=== PATIENT | female | born 1990 | race Two or more races ===

== ENCOUNTER 2017-01-20 12:04 | Emergency (ER) | payer OTHER ==
[~2017-01-20] VITALS: Ht 152.4 cm; Wt 65.8 kg
[2017-01-20 12:04] VITALS: BP 149/90
[2017-01-20] MEDS ORDERED: METHOTREXATE2.5 MG PO (12:34)
[2017-01-20] MEDS ORDERED: TYLENOL EXTRA500 MG ORAL (13:56)
[2017-01-20 14:07] VITALS: BP 149/90
--- NOTE | 2017-01-20 14:44 | Diagnostic Imaging Report ---
Indications: Fall, left wrist pain Technique: 3 views left wrist. Findings: Comparison: None No fracture, dislocation, joint space widening , surrounding soft tissue swelling/foreign body/gas, or other acute changes are identified. IMPRESSION: No evidence of acute injury to the left wrist.
--- NOTE | 2017-01-20 14:45 | Diagnostic Imaging Report ---
Indications: Fall, left shoulder pain Technique: 3 views left shoulder. Findings: Comparison: None No fracture, dislocation, joint space widening , surrounding soft tissue swelling/foreign body/gas, or other acute changes are identified. IMPRESSION: No evidence of acute injury to the left shoulder.
--- NOTE | 2017-01-20 14:46 | Diagnostic Imaging Report ---
Indications: Fall, back pain. Technique: 3 views of the thoracic spine Findings: Comparison: None Vertebral alignment is intact. No fracture, lytic destruction, paraspinous soft tissue swelling, or other acute changes are demonstrated. Small osteophytes are present at the anterior margins of several disc spaces, without significant narrowing. No additional degenerative changes, deformity, or other chronic changes are demonstrated. IMPRESSION: No evidence of acute injury to the thoracic spine Mild degenerative disc disease.
--- NOTE | 2017-01-22 07:19 | Emergency Room Report ---
History of Present Illness General Chief Complaint: Upper Extremity Injury Source: Patient Present Illness HPI 26-year-old female presents ED complaining of left arm and back pain status post fall. Patient states she had a mechanical trip and fall at work today and fell down the stairs. Denies hitting her head or LOC. Patient states pain was minimal but work requested patient come to ER for evaluation. Patient notes pain in her left shoulder and left wrist and upper back. Pain is a 1/10, dull, nonradiating. No other aggravating relieving factors. Denies any other associated symptoms Allergies: Coded Allergies: No Known Allergies (Unverified , 01/20/17) Patient History Past Medical History: none Past Surgical History: none Pertinent Family History: none Social History: Denies: smoking, alcohol use, drug use Last Menstrual Period: 01/04/17 Now: No Immunizations: UTD Reviewed Nursing Documentation: PMH: Agreed, PSxH: Agreed Review of Systems All Other Systems: negative except mentioned in HPI Physical Exam Vital Signs Date Time Temp Pulse Resp B/P (MAP) Pulse Ox O2 Delivery O2 Flow Rate FiO2 01/20/17 12:01 97.9 67 16 149/90 100 Room Air Sp02 EP Interpretation: reviewed, normal General Appearance: no apparent distress, alert, GCS 15, non-toxic Head: normocephalic, atraumatic Eyes: bilateral eye normal inspection, bilateral eye PERRL ENT: hearing grossly normal, normal pharynx, no angioedema, normal voice Neck: full range of motion, no bony tend, supple/symm/no masses Respiratory: chest non-tender, lungs clear, normal breath sounds, speaking full sentences Cardiovascular #1: regular rate, rhythm, no edema Cardiovascular #2: 2+ carotid (R), 2+ carotid (L), 2+ radial (R), 2+ radial (L) , 2+ dorsalis pedis (R), 2+ dorsalis pedis (L) Gastrointestinal: normal bowel sounds, non tender, soft, non-distended, no guarding, no rebound Rectal: deferred Genitourinary: normal inspection, no CVA tenderness, vertebral tenderness - Tspine Musculoskeletal: back normal, gait/station normal, normal range of motion, tender - L shoulder, L wrist Neurologic: alert, oriented x3, responsive, motor strength/tone normal, sensory intact, speech normal Psychiatric: judgement/insight normal, memory normal, mood/affect normal, no suicidal/homicidal ideation Reflexes: 3+ bicep (R), 3+ bicep (L), 3+ tricep (R), 3+ tricep (L), 3+ knee (R) , 3+ knee (L) Skin: normal color, no rash, warm/dry, well hydrated Lymphatic: no adenopathy Medical Decision Making Diagnostic Impression: Primary Impression: Fall down stairs Qualified Codes: W10.8XXA - Fall (on) (from) other stairs and steps, initial encounter Additional Impression: Arm contusion Qualified Codes: S40.022A - Contusion of left upper arm, initial encounter ER Course Hospital Course 26-year-old F presents to ED complaining of L arm and back pain s/p trip and fall Differential diagnoses include: Fracture, dislocation, sprain, contusion Clinical course Patient placed on stretcher. After initial history and physical, I ordered pain medications and Xrays of L shoulder, L wrist and Tspine Xrays prelim read shows no acute fracture/dislocation. on reassessment pain is improved Diagnosis -fall down stairs, arm contusion Stable and discharged to home with prescription for Tylenol. apply ice, keep elevated. weight bear as tolerated. Followup with PMD. Return to ED if symptoms recur or worsen Other X-Ray Diagnostic Results Other X-Ray Diagnostic Results #1: X-Ray ordered: L shoulder # of Views/Limited Vs Complete: 3 View Indication: Pain EP Interpretation: Yes Interpretation: no dislocation, no soft tissue swelling, no fractures Impression: No acute disease Interpreting ER Provider: Electronically signed by Travis Cardozo MD Other X-Ray Diagnostic Results #2: X-Ray ordered: L wrist # of Views/Limited Vs Complete: 3 View Indication: Pain EP Interpretation: Yes Interpretation: no dislocation, no soft tissue swelling, no fractures Impression: No acute disease Interpreting ER Provider: Electronically signed by Travis Cardozo MD Other X-Ray Diagnostic Results #3: X-Ray ordered: T-spine # of Views/Limited Vs Complete: 3 View Indication: Pain EP Interpretation: Yes Interpretation: no dislocation, no soft tissue swelling, no fractures Impression: No acute disease Interpreting ER Provider: Electronically signed by Travis Cardozo MD Last Vital Signs Date Time Temp Pulse Resp B/P (MAP) Pulse Ox O2 Delivery O2 Flow Rate FiO2 01/20/17 14:07 97.9 16 149/90 100 Room Air 01/20/17 12:04 71 Status: improved Disposition: HOME, SELF-CARE Condition: Stable Scripts Acetaminophen* (TYLENOL EXTRA STRENGTH*) 500 Mg Tablet 500 MG ORAL Q8H Y for Prn Headache/Temp > 101, #30 TAB 0 Refills Prov: TRAVIS CARDOZO M.D. 01/20/17 Departure Forms: Return to Work Return to Work Date: Jan 22, 2017 Work Restrictions: Desk Work Only Patient Instructions: Contusion, [id number] TRAVIS CARDOZO M.D. Jan 22, 2017 07:18
== END 2017-01-20 14:07 | disposition home or self-care (01) ==
LOC: EDBD 12:04 → EMR 12:30
DX: M79.602 Pain in left arm (principal); M54.9 Dorsalgia, unspecified; S40.022A Contusion of left upper arm, initial encounter; W10.9XXA Fall (on) (from) unspecified stairs and steps, initial encounter; Y93.9 Activity, unspecified; Y99.9 Unspecified external cause status; M25.532 Pain in left wrist
CPT/HCPCS: 72070; 99284

== ENCOUNTER 2017-04-04 11:34 | Emergency (ER) | payer OTHER ==
[~2017-04-04] VITALS: Ht 152.4 cm; Wt 54.4 kg
[~2017-04-04 11:34] MED LIST: METHOTREXATE2.5 MG PO; TYLENOL EXTRA500 MG ORAL
[2017-04-04] MEDS ORDERED: Norco 5mg/325mg tab ORAL ONE (12:15)
--- NOTE | 2017-04-04 13:43 | Emergency Room Report ---
History of Present Illness General Chief Complaint: Lower Extremity Injury Present Illness HPI 26 YO Femalepresents to the ED c/o 03/09 in severity left ankle/foot pain with swelling s/p fall from skate board this am. denies hitting her head, LOC, bleeding/open wounds. "numbing cream" was applied by neighbor CREMATORY ATTENDANT. pain exacerbated with weight bearing. Denies numbness tingling or loss of sensation or gross motor movements of the extremities, incontinence of bowel or bladder. Denies CP, Palpitations, LOC, AMS, dizziness, Changes in Vision, Sensation, paresthesias, or a sudden severe headache. Allergies: Coded Allergies: No Known Allergies (Unverified , 01/20/17) Patient History Past Medical History: see triage record Past Surgical History: none Pertinent Family History: none Now: No Reviewed Nursing Documentation: PMH: Agreed, PSxH: Agreed Review of Systems All Other Systems: negative except mentioned in HPI Physical Exam Vital Signs Date Time Temp Pulse Resp B/P (MAP) Pulse Ox O2 Delivery O2 Flow Rate FiO2 04/04/17 11:40 98.1 81 20 134/81 100 Room Air Sp02 EP Interpretation: reviewed, normal General Appearance: no apparent distress, alert, GCS 15, non-toxic Head: normocephalic, atraumatic Eyes: bilateral eye normal inspection, bilateral eye PERRL ENT: hearing grossly normal, normal voice Neck: full range of motion Respiratory: lungs clear, normal breath sounds, speaking full sentences Cardiovascular #1: regular rate, rhythm, normal capillary refill Cardiovascular #2: 2+ dorsalis pedis (R) Rectal: deferred Musculoskeletal: back normal, normal range of motion, swelling - Lateral Left ankle, other - no instability/laxity of the ankle ( left) , Pt. is NVI, tender - lateral left ankle Neurologic: alert, oriented x3, responsive, motor strength/tone normal, sensory intact, speech normal Skin: normal color, no rash, warm/dry, well hydrated Medical Decision Making PA Attestation Dr. Dennis is my supervising Physician whom patient management has been discussed with. Diagnostic Impression: Primary Impression: Ankle fracture, left Qualified Codes: S82.892A - Other fracture of left lower leg, initial encounter for closed fracture ER Course Pt. presents to the ED c/o 03/09 in severity left ankle/foot pain with swelling s/p fall from skate board this am. denies hitting her head, LOC, bleeding/open wounds. "numbing cream" was applied by neighbor CREMATORY ATTENDANT. Ddx considered but are not limited to Fracture, dislocation, contusion, Sprain/ Strain/Spasm just to name a few. Vital signs: are WNL, pt. is afebrile H&PE are most consistent with musculoskeletal injury will perform imaging to r/ o fractures/dislocations. ORDERS: - X-ray Left Foot and Left Ankle--POSITIVE FOR FX. ED INTERVENTIONS: - [place] PO - Short leg posterior with stirrup Splint applied to the left ankle by cardiovascular surgical tech. Pt. remains neurovascularly intact. -Patient is provided with crutches and instructed on their use DISCHARGE: At this time pt. is stable for d/c to home. Will provide printed patient care instructions, and any necessary prescriptions. Care plan and follow up instructions have been discussed with the patient prior to discharge. Other X-Ray Diagnostic Results Other X-Ray Diagnostic Results : X-Ray ordered: Left Foot/ Ankle # of Views/Limited Vs Complete: 4 View Indication: Pain PA Xray: Interpretation reviewed, by supervising MD, and agrees with findings. Interpretation: no dislocation, other - Non-displaced distal Fibular fx with soft tissue swelling. Impression: Other - ABNORMAL : POSITIVE FOR FX. Electronically Signed by: Starr Fitch PA-C Last Vital Signs Date Time Temp Pulse Resp B/P (MAP) Pulse Ox O2 Delivery O2 Flow Rate FiO2 04/04/17 11:40 98.1 81 20 134/81 100 Room Air Disposition: HOME, SELF-CARE Condition: Stable Scripts Acetaminophen* (TYLENOL EXTRA STRENGTH*) 500 Mg Tablet 500 MG ORAL Q6H Y for Mild Pain/Temp > 100.5, #30 TAB 0 Refills Prov: Starr Fitch 04/04/17 Hydrocodone Bit/Acetaminophen 5-325* (NORCO 5-325*) 1 Each Tablet 1 TAB ORAL Q6H, #10 TAB 0 Refills Prov: Starr [email or web address] 04/04/17 Referrals: NON PHYSICIAN (PCP) Patient Instructions: Ankle Fracture Additional Instructions: Take medications as directed. Follow up with a Primary Care Provider in 3-5 days, even if your symptoms have resolved. --Please review list of primary care clinics, if you do not already have a primary care provider Return sooner to ED if new symptoms occur, or current symptoms become worse. Do not drink alcohol, drive, or operate heavy machinery while taking [place] as this may cause drowsiness. - Please note that this Emergency Department Report was dictated using [employer] land technology software, occasionally this can lead to erroneous entry secondary to interpretation by the dictation equipment. Starr Fitch Apr 04, 2017 13:43
--- NOTE | 2017-04-04 13:43 | Emergency Room Report ---
History of Present Illness General Chief Complaint: Lower Extremity Injury Present Illness HPI 26 YO Femalepresents to the ED c/o 03/09 in severity left ankle/foot pain with swelling s/p fall from skate board this am. denies hitting her head, LOC, bleeding/open wounds. "numbing cream" was applied by neighbor DOCUMENTATION ENGINEER. pain exacerbated with weight bearing. Denies numbness tingling or loss of sensation or gross motor movements of the extremities, incontinence of bowel or bladder. Denies CP, Palpitations, LOC, AMS, dizziness, Changes in Vision, Sensation, paresthesias, or a sudden severe headache. Allergies: Coded Allergies: No Known Allergies (Unverified , 01/20/17) Patient History Past Medical History: see triage record Past Surgical History: none Pertinent Family History: none Now: No Reviewed Nursing Documentation: PMH: Agreed, PSxH: Agreed Review of Systems All Other Systems: negative except mentioned in HPI Physical Exam Vital Signs Date Time Temp Pulse Resp B/P (MAP) Pulse Ox O2 Delivery O2 Flow Rate FiO2 04/04/17 11:40 98.1 81 20 134/81 100 Room Air Sp02 EP Interpretation: reviewed, normal General Appearance: no apparent distress, alert, GCS 15, non-toxic Head: normocephalic, atraumatic Eyes: bilateral eye normal inspection, bilateral eye PERRL ENT: hearing grossly normal, normal voice Neck: full range of motion Respiratory: lungs clear, normal breath sounds, speaking full sentences Cardiovascular #1: regular rate, rhythm, normal capillary refill Cardiovascular #2: 2+ dorsalis pedis (R) Rectal: deferred Musculoskeletal: back normal, normal range of motion, swelling - Lateral Left ankle, other - no instability/laxity of the ankle ( left) , Pt. is NVI, tender - lateral left ankle Neurologic: alert, oriented x3, responsive, motor strength/tone normal, sensory intact, speech normal Skin: normal color, no rash, warm/dry, well hydrated Medical Decision Making PA Attestation Dr. Dennis is my supervising Physician whom patient management has been discussed with. Diagnostic Impression: Primary Impression: Ankle fracture, left Qualified Codes: S82.892A - Other fracture of left lower leg, initial encounter for closed fracture ER Course Pt. presents to the ED c/o 03/09 in severity left ankle/foot pain with swelling s/p fall from skate board this am. denies hitting her head, LOC, bleeding/open wounds. "numbing cream" was applied by neighbor DOCUMENTATION ENGINEER. Ddx considered but are not limited to Fracture, dislocation, contusion, Sprain/ Strain/Spasm just to name a few. Vital signs: are WNL, pt. is afebrile H&PE are most consistent with musculoskeletal injury will perform imaging to r/ o fractures/dislocations. ORDERS: - X-ray Left Foot and Left Ankle--POSITIVE FOR FX. ED INTERVENTIONS: - [place] PO - Short leg posterior with stirrup Splint applied to the left ankle by soil technician. Pt. remains neurovascularly intact. -Patient is provided with crutches and instructed on their use DISCHARGE: At this time pt. is stable for d/c to home. Will provide printed patient care instructions, and any necessary prescriptions. Care plan and follow up instructions have been discussed with the patient prior to discharge. Other X-Ray Diagnostic Results Other X-Ray Diagnostic Results : X-Ray ordered: Left Foot/ Ankle # of Views/Limited Vs Complete: 4 View Indication: Pain PA Xray: Interpretation reviewed, by supervising MD, and agrees with findings. Interpretation: no dislocation, other - Non-displaced distal Fibular fx with soft tissue swelling. Impression: Other - ABNORMAL : POSITIVE FOR FX. Electronically Signed by: Starr Fitch PA-C Last Vital Signs Date Time Temp Pulse Resp B/P (MAP) Pulse Ox O2 Delivery O2 Flow Rate FiO2 04/04/17 11:40 98.1 81 20 134/81 100 Room Air Disposition: HOME, SELF-CARE Condition: Stable Scripts Acetaminophen* (TYLENOL EXTRA STRENGTH*) 500 Mg Tablet 500 MG ORAL Q6H Y for Mild Pain/Temp > 100.5, #30 TAB 0 Refills Prov: Starr Fitch 04/04/17 Hydrocodone Bit/Acetaminophen 5-325* (NORCO 5-325*) 1 Each Tablet 1 TAB ORAL Q6H, #10 TAB 0 Refills Prov: Starr [email or web address] 04/04/17 Referrals: NON PHYSICIAN (PCP) Patient Instructions: Ankle Fracture Additional Instructions: Take medications as directed. Follow up with a Primary Care Provider in 3-5 days, even if your symptoms have resolved. --Please review list of primary care clinics, if you do not already have a primary care provider Return sooner to ED if new symptoms occur, or current symptoms become worse. Do not drink alcohol, drive, or operate heavy machinery while taking [place] as this may cause drowsiness. - Please note that this Emergency Department Report was dictated using [employer] large technology software, occasionally this can lead to erroneous entry secondary to interpretation by the dictation equipment. Starr Fitch Apr 04, 2017 13:43
--- NOTE | 2017-04-04 13:43 | Emergency Room Report ---
History of Present Illness General Chief Complaint: Lower Extremity Injury Present Illness HPI 26 YO Femalepresents to the ED c/o 03/09 in severity left ankle/foot pain with swelling s/p fall from skate board this am. denies hitting her head, LOC, bleeding/open wounds. "numbing cream" was applied by neighbor XEROX MACHINE OPERATOR. pain exacerbated with weight bearing. Denies numbness tingling or loss of sensation or gross motor movements of the extremities, incontinence of bowel or bladder. Denies CP, Palpitations, LOC, AMS, dizziness, Changes in Vision, Sensation, paresthesias, or a sudden severe headache. Allergies: Coded Allergies: No Known Allergies (Unverified , 01/20/17) Patient History Past Medical History: see triage record Past Surgical History: none Pertinent Family History: none Now: No Reviewed Nursing Documentation: PMH: Agreed, PSxH: Agreed Review of Systems All Other Systems: negative except mentioned in HPI Physical Exam Vital Signs Date Time Temp Pulse Resp B/P (MAP) Pulse Ox O2 Delivery O2 Flow Rate FiO2 04/04/17 11:40 98.1 81 20 134/81 100 Room Air Sp02 EP Interpretation: reviewed, normal General Appearance: no apparent distress, alert, GCS 15, non-toxic Head: normocephalic, atraumatic Eyes: bilateral eye normal inspection, bilateral eye PERRL ENT: hearing grossly normal, normal voice Neck: full range of motion Respiratory: lungs clear, normal breath sounds, speaking full sentences Cardiovascular #1: regular rate, rhythm, normal capillary refill Cardiovascular #2: 2+ dorsalis pedis (R) Rectal: deferred Musculoskeletal: back normal, normal range of motion, swelling - Lateral Left ankle, other - no instability/laxity of the ankle ( left) , Pt. is NVI, tender - lateral left ankle Neurologic: alert, oriented x3, responsive, motor strength/tone normal, sensory intact, speech normal Skin: normal color, no rash, warm/dry, well hydrated Medical Decision Making PA Attestation Dr. Dennis is my supervising Physician whom patient management has been discussed with. Diagnostic Impression: Primary Impression: Ankle fracture, left Qualified Codes: S82.892A - Other fracture of left lower leg, initial encounter for closed fracture ER Course Pt. presents to the ED c/o 03/09 in severity left ankle/foot pain with swelling s/p fall from skate board this am. denies hitting her head, LOC, bleeding/open wounds. "numbing cream" was applied by neighbor XEROX MACHINE OPERATOR. Ddx considered but are not limited to Fracture, dislocation, contusion, Sprain/ Strain/Spasm just to name a few. Vital signs: are WNL, pt. is afebrile H&PE are most consistent with musculoskeletal injury will perform imaging to r/ o fractures/dislocations. ORDERS: - X-ray Left Foot and Left Ankle--POSITIVE FOR FX. ED INTERVENTIONS: - [place] PO - Short leg posterior with stirrup Splint applied to the left ankle by medical radiation tech. Pt. remains neurovascularly intact. -Patient is provided with crutches and instructed on their use DISCHARGE: At this time pt. is stable for d/c to home. Will provide printed patient care instructions, and any necessary prescriptions. Care plan and follow up instructions have been discussed with the patient prior to discharge. Other X-Ray Diagnostic Results Other X-Ray Diagnostic Results : X-Ray ordered: Left Foot/ Ankle # of Views/Limited Vs Complete: 4 View Indication: Pain PA Xray: Interpretation reviewed, by supervising MD, and agrees with findings. Interpretation: no dislocation, other - Non-displaced distal Fibular fx with soft tissue swelling. Impression: Other - ABNORMAL : POSITIVE FOR FX. Electronically Signed by: Starr Fitch PA-C Last Vital Signs Date Time Temp Pulse Resp B/P (MAP) Pulse Ox O2 Delivery O2 Flow Rate FiO2 04/04/17 11:40 98.1 81 20 134/81 100 Room Air Disposition: HOME, SELF-CARE Condition: Stable Scripts Acetaminophen* (TYLENOL EXTRA STRENGTH*) 500 Mg Tablet 500 MG ORAL Q6H Y for Mild Pain/Temp > 100.5, #30 TAB 0 Refills Prov: Starr Fitch 04/04/17 Hydrocodone Bit/Acetaminophen 5-325* (NORCO 5-325*) 1 Each Tablet 1 TAB ORAL Q6H, #10 TAB 0 Refills Prov: Starr [email or web address] 04/04/17 Referrals: NON PHYSICIAN (PCP) Patient Instructions: Ankle Fracture Additional Instructions: Take medications as directed. Follow up with a Primary Care Provider in 3-5 days, even if your symptoms have resolved. --Please review list of primary care clinics, if you do not already have a primary care provider Return sooner to ED if new symptoms occur, or current symptoms become worse. Do not drink alcohol, drive, or operate heavy machinery while taking [place] as this may cause drowsiness. - Please note that this Emergency Department Report was dictated using [employer] technician technology software, occasionally this can lead to erroneous entry secondary to interpretation by the dictation equipment. Starr Fitch Apr 04, 2017 13:43
[2017-04-04] MEDS ORDERED: TYLENOL EXTRA500 MG ORAL (14:11)
[2017-04-04] MEDS ORDERED: NORCO 5-325 TA1 EACH ORAL (14:11)
[2017-04-04 14:33] VITALS: BP 128/82
--- NOTE | 2017-04-05 14:54 | Diagnostic Imaging Report ---
Indication: Pain Comparison: None Findings: 3 views of the left foot were obtained. No acute fractures, malalignment, erosions or periostitis are identified. Soft tissues are unremarkable. Impression: No acute findings
--- NOTE | 2017-04-05 14:55 | Diagnostic Imaging Report ---
Indication: left ankle pain Comparison: None Findings: 3 views of the left ankle obtained. Acute nondisplaced fracture of the lateral malleolus demonstrated. Ankle alignment is normal. Lateral soft tissue swelling is present. Impression: Acute lateral malleolus fracture
== END 2017-04-04 14:35 | disposition home or self-care (01) ==
LOC: EMR 12:30
DX: S82.65XA Nondisplaced fracture of lateral malleolus of left fibula, initial encounter for closed fracture (principal); V00.131A Fall from skateboard, initial encounter; Y93.51 Activity, roller skating (inline) and skateboarding
CPT/HCPCS: 29515; 99284

== ENCOUNTER 2017-08-13 18:27 | Emergency (ER) | payer OTHER ==
[~2017-08-13] VITALS: Ht 154.9 cm; Wt 57.6 kg
[~2017-08-13 18:27] MED LIST changes: +NORCO 5-325 TA1 EACH ORAL
[2017-08-13] MEDS ORDERED: HUMIRA40 MG/0.2 SUBQ (18:44)
[2017-08-13 18:48] VITALS: BP 124/85
--- NOTE | 2017-08-13 19:21 | Emergency Room Report ---
History of Present Illness General Chief Complaint: Upper Respiratory Illness Source: Patient Present Illness HPI Pt. presents to the ED c/o dry cough, congestion body-aches, nasal congestion and sinus headaches with 8/10 in severity Right ear pain x 2 days. pt. also reports abdominal pain/burning sensation after eating food x 3 days. pt. has been taking Motrin regularly as the cold weather has agitated her ankle pain from previous fracture. Denies abdominal tenderness. Pt also has hx of RA. Denies sore throat, ear pain, high fevers, lethargy, neck pain/stiffness, irritability, photophobia dehydration, N/V/D/C. Denies Cp, Palpitations, LOC, AMS, seizures, paresthesias, or changes in Hearing or vision, no Sudden severe STEVENSON. Pt. reports some muffled hearing out of the right ear, and feeling as though it needs to pop. Allergies: Coded Allergies: No Known Allergies (Unverified , 01/20/17) Patient History Past Medical History: see triage record Past Surgical History: none Pertinent Family History: none Last Menstrual Period: 07/26/17 Now: No : 0 Para: 0 Reviewed Nursing Documentation: PMH: Agreed Review of Systems All Other Systems: negative except mentioned in HPI Physical Exam Vital Signs Date Time Temp Pulse Resp B/P (MAP) Pulse Ox O2 Delivery O2 Flow Rate FiO2 08/13/17 18:38 98.2 76 18 124/85 98 Room Air 98.2 Sp02 EP Interpretation: reviewed, normal General Appearance: no apparent distress, alert, GCS 15, non-toxic Head: normocephalic, atraumatic Eyes: bilateral eye normal inspection, bilateral eye PERRL ENT: hearing grossly normal, normal pharynx, normal voice, TMs + canals normal , uvula midline, nasal congestion Neck: full range of motion, no meningismus, no bony tend Respiratory: chest non-tender, lungs clear, normal breath sounds, no rhonchi, no respiratory distress, no accessory muscle use, no wheezing, speaking full sentences Cardiovascular #1: regular rate, rhythm Gastrointestinal: normal bowel sounds, non tender, soft, non-distended, no guarding Musculoskeletal: back normal, gait/station normal, normal range of motion, non- tender Neurologic: alert, oriented x3, responsive, motor strength/tone normal, sensory intact, normal gait, speech normal, grossly normal Psychiatric: judgement/insight normal Skin: normal color, no rash, warm/dry, well hydrated Lymphatic: no adenopathy Medical Decision Making PA Attestation Dr. Mayfield is my supervising physician whom pt. management has been discussed with. Diagnostic Impression: Primary Impression: Upper respiratory infection Qualified Codes: J06.9 - Acute upper respiratory infection, unspecified Additional Impression: Gastritis Qualified Codes: K29.70 - Gastritis, unspecified, without bleeding ER Course Pt. presents to the ED c/o dry cough, congestion body-aches, nasal congestion and sinus headaches with 8/10 in severity Right ear pain x 2 days. pt. also reports abdominal pain/burning sensation after eating food x 3 days. pt. has been taking Motrin regularly as the cold weather has agitated her ankle pain from previous fracture. Denies abdominal tenderness. Pt also has hx of RA. Denies sore throat, ear pain, high fevers, lethargy, neck pain/stiffness, irritability, photophobia dehydration, N/V/D/C. Denies Cp, Palpitations, LOC, AMS, seizures, paresthesias, or changes in Hearing or vision, no Sudden severe STEVENSON. Pt. reports some muffled hearing out of the right ear, and feeling as though it needs to pop. Ddx considered but are not limited to URI, pneumonia, PE, strep pharyngitis, meningitis, gastritis, PUD just to name a few. Vital signs: Pt. is afebrile, the remaining VS are WNL H&PE are most consistent with URI- no meningeal signs, oropharynx is not involved, no evidence of bacterial infection at this time. TM's are WNL no evidence of infection. No evidence of acute abdomen at this time. pt. is NAD. ORDERS: none required at this time, the diagnosis is clinical ED INTERVENTIONS: None required at this time. --PT. EDUCATION: Discussed antibiotic resistance with inappropriate prescribing of antibiotics for viral illnesses. Discussed signs and symptoms to indicate viral illness versus bacterial illness. DISCHARGE: At this time pt. is stable for d/c to home. Will provide printed patient care instructions, and any necessary prescriptions. Care plan and follow up instructions have been discussed with the patient prior to discharge. Last Vital Signs Date Time Temp Pulse Resp B/P (MAP) Pulse Ox O2 Delivery O2 Flow Rate FiO2 08/13/17 18:48 76 18 Room Air 08/13/17 18:48 98.2 124/85 98 98.2 Disposition: HOME, SELF-CARE Condition: Stable Scripts Pseudoephedrine Hcl* (NEXAFED*) 30 Mg Tablet 30 MG ORAL Q6H Y for congestion, #20 TAB Prov: Starr Fitch 08/13/17 Oxymetazoline HCl (Afrin) 15 Ml [place] 2 SPRAY NASAL TWICE A DAY, #15 SPRAY Prov: Starr Fitch 08/13/17 Acetaminophen* (TYLENOL EXTRA STRENGTH*) 500 Mg Tablet 500 MG ORAL Q6H Y for Mild Pain/Temp > 100.5, #20 TAB 0 Refills Prov: Starr Fitch 08/13/17 Ranitidine Hcl* (ZANTAC*) 150 Mg Tablet 150 MG ORAL TWICE A DAY for 10 Days, #20 TAB Prov: Starr Fitch 08/13/17 Codeine/Promethazine Hcl* (PROMETHAZINE-CODEINE SYRUP*) 118 Ml Syrup 5 ML ORAL Q6H Y for For Cough, #120 ML 0 Refills Prov: Starr Fitch 08/13/17 Patient Instructions: Gastritis, Adult, [id number], Upper Respiratory Infection, Adult Additional Instructions: Take medications as directed. Follow up with a Primary Care Provider in 3-5 days, even if your symptoms have resolved. --Please review list of primary care clinics, if you do not already have a primary care provider Return sooner to ED if new symptoms occur, or current symptoms become worse. Do not drink alcohol, drive, or operate heavy machinery while taking Cough Syrup as this may cause drowsiness. - Please note that this Emergency Department Report was dictated using [employer] interpreter technology software, occasionally this can lead to erroneous entry secondary to interpretation by the dictation equipment. Starr Fitch Aug 13, 2017 19:20
[2017-08-13] MEDS ORDERED: AFRIN NASAL SPR30 ML NASAL (19:24)
[2017-08-13] MEDS ORDERED: TYLENOL EXTRA500 MG ORAL (19:24)
[2017-08-13] MEDS ORDERED: NEXAFED30 MG ORAL (19:24)
[2017-08-13] MEDS ORDERED: PROMETHAZINE-C118 M1 ORAL (19:24)
[2017-08-13] MEDS ORDERED: ZANTAC150 MG ORAL (19:24)
[2017-08-13 19:31] VITALS: BP 124/85
== END 2017-08-13 19:31 | disposition home or self-care (01) ==
LOC: EMR 19:30
DX: J06.9 Acute upper respiratory infection, unspecified (principal); K29.70 Gastritis, unspecified, without bleeding
CPT/HCPCS: 99284